=== PATIENT | female | born 1990 | race African-American/Black ===

== ENCOUNTER 2022-08-16 17:15 | Emergency (ER) | payer OTHER ==
[~2022-08-16] VITALS: Ht 165.1 cm; Wt 100.0 kg
[2022-08-16] MEDS ORDERED: HYDROCODONE/ACETAMINOPHEN 5/325MG TABLET PO ONE (21:15)
[2022-08-16] MEDS ORDERED: HYDR-4001 MT ×2 (22:42)
[2022-08-16] MEDS ORDERED: ACETAMINOPHEN 325MG TABLET PO ONE (23:15)
[2022-08-16 23:21] VITALS: BP 124/78
[2022-08-17] MEDS ORDERED: HYDR-4001 MT (00:21)
== END 2022-08-16 23:27 | disposition home or self-care (01) ==
LOC: ER 17:15
DX: S82.435A Nondisplaced oblique fracture of shaft of left fibula, initial encounter for closed fracture (principal); W11.XXXA Fall on and from ladder, initial encounter; Y93.39 Activity, other involving climbing, rappelling and jumping off; Y92.89 Other specified places as the place of occurrence of the external cause
CPT/HCPCS: 73610; 73630; 99284